=== PATIENT | male | born 1995 | race Caucasian/White ===

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

== ENCOUNTER → 2017-01-06 | Outpatient (CLI) | payer OTHER ==
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
== END | disposition home or self-care (01) ==
LOC: SLEEP 15:03
PROVIDERS: ATTEND Internal Medicine Critical Care Medicine
DX: G47.10 Hypersomnia, unspecified (principal); J35.1 Hypertrophy of tonsils; M26.29 Other anomalies of dental arch relationship
CPT/HCPCS: 99211

== ENCOUNTER → 2020-02-14 | Outpatient (CLI) | payer OTHER ==
--- NOTE | 2020-02-14 18:00 | ECHOF ---
Referral Reason:R07.9,R06.02 MEASUREMENTS -------- HEIGHT: 172.7 cm WEIGHT: 83.9 kg BP: IVSd: 0.9 cm (0.6 - 1.1) LVIDd: 4.7 cm (3.9 - 5.3) LVPWd: 1.0 cm (0.6 - 1.1) IVSs: 1.7 cm LVIDs: 2.2 cm LVPWs: 1.8 cm RVIDd: 2.1 cm (< 3.3) LAESV Index (A-L): 14.23 ml/m Ao Diam: 2.6 cm (2.0 - 3.7) LA Diam: 3.1 cm (2.7 - 3.8) AV Cusp: 2.0 cm (1.5 - 2.6) EPSS: 0.5 cm RAP: 5.00 mmHg RVSP: 19.60 mmHg MV EF SLOPE: 148.48 mm/s (70 - 150) MV EXCURSION: 11.45 mm (> 18.000) FINDINGS -------- Sinus rhythm. This was a technically good study. The left ventricular size is normal. Left ventricular wall thickness is normal. Overall left vent ricular systolic function is normal with, an EF between 55 - 60 %. The diastolic filling pattern is normal for the age of the patient {E/E'}. The right ventricle is normal in size. The left atrial size is normal. The right atrial size is normal. Interatrial and interventricular septum intact. The aortic valve is trileaflet and appears structurally normal. The mitral valve is normal. There is trace mitral regurgitation. The tricuspid valve appears structurally normal. Trace tricuspid regurgitation present. Right josh tricular systolic pressure is normal at < 35 mmHg. There is no pulmonic regurgitation present. The aortic root size is normal. Normal inferior vena cava with normal inspiratory collapse consistent with estimated right atrial pre ssure of 5 mmHg. There is no pericardial effusion. CONCLUSIONS -------- 1. Sinus rhythm. 2. This was a technically good study. 3. The left ventricular size is normal. 4. Left ventricular wall thickness is normal. 5. Overall left ventricular systolic function is normal with, an EF between 55 - 60 %. 6. The diastolic filling pattern is normal for the age of the patient {E/E'} 7. The right ventricle is normal in size. 8. The left atrial size is normal. 9. The right atrial size is normal. 10. Interatrial and interventricular septum intact. 11. The aortic valve is trileaflet and appears structurally normal. 12. The mitral valve is normal. 13. There is trace mitral regurgitation. 14. The tricuspid valve appears structurally normal. 15. Trace tricuspid regurgitation present. 16. Right ventricular systolic pressure is normal at < 35 mmHg. 17. There is no pulmonic regurgitation present. 18. The aortic root size is normal. 19. Normal inferior vena cava with normal inspiratory collapse consistent with estimated right atrial pressure of 5 mmHg. 20. There is no pericardial effusion. TALK SHOW HOST: Janis Fontenot RDCS
== END | disposition home or self-care (01) ==
LOC: RADECHMAIN 12:53
PROVIDERS: ATTEND Internal Medicine
DX: R07.9 Chest pain, unspecified (principal)
CPT/HCPCS: 93306

== ENCOUNTER → 2020-04-16 | Outpatient (CLI) | payer OTHER ==
--- NOTE | 2020-04-16 08:06 | US ---
EXAMINATION TYPE: US gallbladder DATE OF EXAM: 04/16/2020 COMPARISON: US abdomen limited 2017 CLINICAL HISTORY: R10.11 RUQ ABD PAIN. EXAM MEASUREMENTS: Liver Length: 13.6 cm Gallbladder Wall: 0.2 cm CBD: 0.3 cm Right Kidney: 9.2 x 4.0 x 5.5 cm Pancreas: visualized portions wnl Liver: wnl Gallbladder: No stones seen Evidence for sonographic Marinelli's sign: Yes CBD: wnl Right Kidney: No hydronephrosis or masses seen Visualized pancreas and liver unremarkable. Gallbladder seen without shadowing mobile gallstones. Perez ited images of right kidney show no gross hydronephrosis. IMPRESSION: No shadowing mobile gallstones or ultrasound evidence for acute cholecystitis. No signifi cant change from prior.
== END ==
LOC: RADUSWWP 07:44
PROVIDERS: ATTEND Internal Medicine
DX: R10.11 Right upper quadrant pain (principal)
CPT/HCPCS: 76705

== ENCOUNTER → 2020-04-20 | Outpatient (CLI) | payer OTHER ==
--- NOTE | 2020-04-20 18:36 | NM ---
Nuclear medicine hepatobiliary scan. HISTORY: Pain. DOSAGE: The patient received 8 ounces of ensure plus and 4.1 mCi of Technetium 99m Choletec. FINDINGS: There is normal hepatic extraction. The gallbladder is seen by 20 minutes. There is bilia ry to bowel clearance by 30 minutes. Ejection fraction is 56%. IMPRESSION: 1. No evidence of cholecystitis. Normal ejection fraction. 2. Reduced uptake involving the left lobe of the liver is nonspecific. Previous ultrasound demonstrat ed no definite abnormality in the region. Could be artifactual correlate clinically.
== END | disposition home or self-care (01) ==
LOC: RADNMMAIN 15:28
PROVIDERS: ATTEND Internal Medicine
DX: R93.2 Abnormal findings on diagnostic imaging of liver and biliary tract (principal)
CPT/HCPCS: 78226; A9537

== ENCOUNTER 2021-01-31 10:13 | Emergency (ER) | payer OTHER ==
[2021-01-31] MEDS ORDERED: SODIUM CHLORIDE 0.9% 1,000 ML IV STA ×2 (10:40→10:44)
[2021-01-31] MEDS ORDERED: ONDANSETRON 4 MG/2 ML VIAL IVP STA (10:40)
[2021-01-31] MEDS ORDERED: FAMOTIDINE 20 MG/2 ML VIAL IV STA (10:41)
[2021-01-31 11:27] LABS: Appearance,Urine Clear (Clear); Basophils % (A) 0 %; Bilirubin,Urine Negative (Negative); Blood,Urine Negative (Negative); Color,Urine Yellow; Eosinophils # (A) 0.2 k/uL (0-0.7); Eosinophils % (A) 2 %; Glucose,Urine (UA) Negative (Negative); HCT 47.5 % (39.0-53.0); HGB 15.6 gm/dL (13.0-17.5); Ketones,Urine 4+ (Negative); Leukocyte Esterase,Urine Negative (Negative); Lymphocytes # (A) 0.3 k/uL (1.0-4.8); Lymphocytes % (A) 3 %; MCH 28.1 pg (25.0-35.0); MCHC 32.8 g/dL (31.0-37.0); MCV 85.6 fL (80.0-100.0); Mean Platelet Volume 6.7; Monocytes # (A) 0.4 k/uL (0-1.0); Monocytes % (A) 3 %; Neutrophils # (A) 9.4 k/uL (1.3-7.7); Neutrophils % (A) 90 %; Nitrite,Urine Negative (Negative); Platelet Count 311 k/uL (150-450); Protein,Urine Trace (Negative); RBC 5.54 m/uL (4.30-5.90); RDW 12.8 % (11.5-15.5); Specific Gravity,Urine 1.036 (1.001-1.035); Urobilinogen,Urine <2.0 mg/dL (<2.0); WBC 10.4 k/uL (3.8-10.6)
--- NOTE | 2021-01-31 11:35 | ED ---
Nausea/Vomiting/Diarrhea HPI - General Chief complaint: Nausea/Vomiting/Diarrhea Stated complaint: Sun poison Time Seen by Provider: 01/31/21 10:39 Source: patient Mode of arrival: ambulatory Limitations: no limitations - History of Present Illness Initial comments: 25-year-old male presents to the emergency department with a chief complaint of nausea vomiting diarrhea. Patient reports over the last few days she has been working extensively outside in the sun. He states he believes he has developed "sun poisoning". States is a filling weaker but last night after eating [employer], he developed nausea with multiple episodes of nonbilious and nonbloody vomiting. Also reports nonbloody diarrhea. Reports upper abdominal pain especially after vomiting episodes. Denies any chest pain shortness of breath. Denies hematuria, hematochezia or melena. Denies any fevers or chills. - Related Data Home Medications Medication Instructions Recorded Confirmed Ibuprofen [Advil] 400 mg PO Q8HR PRN 06/11/16 06/11/16 Previous Rx's Medication Instructions Recorded Dicyclomine [Bentyl] 20 mg PO TID #15 tablet 10/17/16 Allergies Allergy/AdvReac Type Severity Reaction Status Date / Time No Known Allergies Allergy Verified 01/31/21 10:20 Review of Systems ROS Statement: Those systems with pertinent positive or pertinent negative responses have been documented in the HPI. ROS Other: All systems not noted in ROS Statement are negative. Past Medical History Past Medical History: No Reported History Additional Past Medical History / Comment(s): VOMITING OF BLOOD X4 IN PAST MO. History of Any Multi-Drug Resistant Organisms: None Reported Past Surgical History: No Surgical Hx Reported Past Anesthesia/Blood Transfusion Reactions: No Reported Reaction Past Psychological History: No Psychological Hx Reported Smoking Status: Never smoker Past Alcohol Use History: Occasional Past Drug Use History: Marijuana - Past Family History Mother Family Medical History: No Reported History General Exam Limitations: no limitations General appearance: alert, in no apparent distress Head exam: Present: atraumatic, normocephalic, normal inspection Eye exam: Present: normal appearance, PERRL, EOMI Pupils: Present: normal accommodation ENT exam: Present: normal exam, normal oropharynx, mucous membranes moist, TM's normal bilaterally, normal external ear exam Neck exam: Present: normal inspection, full ROM. Absent: tenderness, lymphadenopathy Respiratory exam: Present: normal lung sounds bilaterally. Absent: respiratory distress, wheezes, rales, rhonchi, stridor, chest wall tenderness, accessory muscle use Cardiovascular Exam: Present: regular rate, normal rhythm, normal heart sounds. Absent: systolic murmur GI/Abdominal exam: Present: soft, tenderness (Mild upper abdominal tenderness). Absent: distended, guarding, rebound, rigid Extremities exam: Present: normal inspection, full ROM, normal capillary refill. Absent: tenderness, pedal edema, joint swelling Back exam: Present: normal inspection, full ROM. Absent: tenderness, CVA tenderness (R), CVA tenderness (L), muscle spasm, paraspinal tenderness, vertebral tenderness Neurological exam: Present: alert, oriented X3 Psychiatric exam: Present: normal affect, normal mood Skin exam: Present: warm, dry, intact, normal color Course Vital Signs 01/31/21 10:15 Temperature 97.2 F L Pulse Rate 94 Respiratory 18 Rate Blood Pressure 120/82 O2 Sat by Pulse 100 Oximetry Medical Decision Making - Medical Decision Making 25-year-old male presents to emergency department a chief complaint of nausea vomiting diarrhea. On physical examination, mild upper abdominal tenderness. CBC and a markable. CMP reveals elevated BUN of 26 and plus for ketones in the urine. Patient is dehydrated from the fluid loss. Patient given Pepcid, Zofran and 2 L of IV fluids. Patient was reevaluated and reports feeling much better. Patient will be discharged and advised to follow with PCP. Advised to drink plenty of fluids. We'll discharge with a prescription for Zofran. Return parameters discussed. Case discussed with - Lab Data Result diagrams: 01/31/21 11:01 01/31/21 11:01 Lab Results 01/31/21 01/31/21 01/31/21 Range/Units 11:01 11:01 11: WBC 10.4 (3.8-10.6) k/uL RBC 5.54 (4.30-5.90) m/uL Hgb 15.6 (13.0-17.5) gm/dL Hct 47.5 (39.0-53.0) % MCV 85.6 (80.0-100.0) fL MCH 28.1 (25.0-35.0) pg MCHC 32.8 (31.0-37.0) g/dL RDW 12.8 (11.5-15.5) % Plt Count 311 (150-450) k/uL MPV 6.7 Neutrophils % 90 % Lymphocytes % 3 % Monocytes % 3 % Eosinophils % 2 % Basophils % 0 % Neutrophils # 9.4 H (1.3-7.7) k/uL Lymphocytes # 0.3 L (1.0-4.8) k/uL Monocytes # 0.4 (0-1.0) k/uL Eosinophils # 0.2 (0-0.7) k/uL Basophils # 0.0 (0-0.2) k/uL Sodium 142 (137-145) mmol/L Potassium 4.5 (3.5-5.1) mmol/L Chloride 104 (98-107) mmol/L Carbon Dioxide 29 (22-30) mmol/L Anion Gap 9 mmol/L BUN 26 H (9-20) mg/dL Creatinine 1.15 (0.66-1.25) mg/dL Est GFR (CKD-EPI)AfAm >90 (>60 ml/min/1.73 sqM) Est GFR (CKD-EPI)NonAf 90 (>60 ml/min/1.73 sqM) Glucose 106 H (74-99) mg/dL Calcium 9.7 (8.4-10.2) mg/dL Total Bilirubin 1.1 (0.2-1.3) mg/dL AST 43 (17-59) U/L ALT 25 (4-49) U/L Alkaline Phosphatase 76 (38-126) U/L Total Protein 7.7 (6.3-8.2) g/dL Albumin 5.0 (3.5-5.0) g/dL Lipase 49 (23-300) U/L Urine Color Yellow Urine Appearance Clear (Clear) Urine pH 6.0 (5.0-8.0) Ur Specific [place] 1.036 H (1.001-1.035) Urine Protein Trace H (Negative) Urine Glucose (UA) Negative (Negative) Urine Ketones 4+ H (Negative) Urine Blood Negative (Negative) Urine Nitrite Negative (Negative) Urine Bilirubin Negative (Negative) Urine Urobilinogen <2.0 (<2.0) mg/dL Ur Leukocyte Esterase Negative (Negative) Disposition Clinical Impression: Food poisoning, Dehydration, Gastroenteritis Disposition: HOME SELF-CARE Condition: Stable Instructions (If sedation given, give patient instructions): Gastroenteritis (ED), Dehydration (ED) Additional Instructions: Please return to the Emergency Department if symptoms worsen or any other concerns. Is patient prescribed a controlled substance at d/c from ED?: No Referrals: Ra Cisse MD [Primary Care Provider] - 1-2 days Time of Disposition: 12:13
[2021-01-31 11:53] LABS: ALT 25 U/L (4-49); AST 43 U/L (17-59); African American GFR (CKD) >90 (>60 ml/min/1.73 sqM); Alkaline Phosphatase 76 U/L (38-126); Anion Gap 9 mmol/L; Blood Urea Nitrogen 26 mg/dL (9-20); Calcium 9.7 mg/dL (8.4-10.2); Carbon Dioxide 29 mmol/L (22-30); Chloride 104 mmol/L (98-107); Glucose 106 mg/dL (74-99); Lipase 49 U/L (23-300); Non-African American GFR(CKD) 90 (>60 ml/min/1.73 sqM); Potassium 4.5 mmol/L (3.5-5.1); Sodium 142 mmol/L (137-145); Total Bilirubin 1.1 mg/dL (0.2-1.3); Total Protein 7.7 g/dL (6.3-8.2)
[2021-01-31 12:41] VITALS: BP 120/74; PULSE 64; RESP 17; TEMP 98.6
== END 2021-01-31 12:41 | disposition home or self-care (01) ==
LOC: EC 10:13
DX: A05.9 Bacterial foodborne intoxication, unspecified (principal); E86.0 Dehydration; Z79.1 Long term (current) use of non-steroidal anti-inflammatories (NSAID)
CPT/HCPCS: 36415; 80053; 83690; 85025; 81003; 99284; 96374; 96375; 96361; J2405

== ENCOUNTER → 2022-07-18 | Outpatient (CLI) | payer OTHER ==
--- NOTE | 2022-07-18 09:39 | US ---
EXAMINATION TYPE: US thyroid st tissue head/neck DATE OF EXAM: 07/18/2022 COMPARISON: NONE CLINICAL HISTORY: R22.0 SWELLING/MASS. GLAND SIZE: Right Lobe: 7.4 x 1.1 x 2.0 cm, enlarged Overall Parenchyma: homogenous Left Lobe: 5.4 x 1.1 x 2.0 cm Overall Parenchyma: homogeneous Isthmus Thickness: 0.2 cm NODULES RIGHT: # of nodules measured on right: 0 LEFT: # of nodules measured on left: 0 ISTHMUS: # of nodules measured in the isthmus: 0 Bilateral neck scanned, right neck lymph node seen measuring 3.7 x 1.0 x 1.9 cm, left neck lymph node seen measuring 2.8 x 0.9 x 1.3cm. IMPRESSION: 1. No organizing mass or fluid collection. Consider CT of the neck with IV contrast for further eval uation for mass/swelling. 2. No evidence of thyroid nodule. 3. Nonspecific bilateral lymph nodes.
[2022-07-18 14:44] LABS: Basophils # (A) 0.05 X 10*3/uL (0.00-0.10); Basophils % (A) 0.7 %; Eosinophils # (A) 0.54 X 10*3/uL (0.04-0.35); Eosinophils % (A) 7.5 %; HCT 45.1 % (39.6-50.0); HGB 14.8 g/dL (13.0-17.0); Immature Grans, Automated 0.3 %; Lymphocytes # (A) 2.39 X 10*3/uL (0.90-5.00); Lymphocytes % (A) 33.3 %; MCH 27.9 pg (27.0-32.0); MCHC 32.8 g/dL (32.0-37.0); MCV 84.9 fL (80.0-97.0); Mean Platelet Volume 10.1 fL (9.5-12.2); Monocytes # (A) 0.53 X 10*3/uL (0.20-1.00); Monocytes % (A) 7.4 %; NRBC Per 100 WBC 0 /100 WBCS (0.0-0.0); Neutrophils # (A) 3.65 X 10*3/uL (1.80-7.70); Neutrophils % (A) 50.8 %; Platelet Count 294 X 10*3/uL (140-440); RBC 5.31 X 10*6/uL (4.40-5.60); RDW 12.2 % (11.5-14.5); WBC 7.18 X 10*3/uL (4.50-10.00)
[2022-07-18 15:58] LABS: African American GFR (CKD) 108.3 (60.0-200.0); Albumin 4.6 g/dL (3.8-4.9); Albumin/Globulin Ratio 1.92 (1.60-3.17); Anion Gap 10.1 mmol/L (10.00-18.00); BUN/Creat Ratio 19.09 Ratio (12.00-20.00); Calcium 9.6 mg/dL (8.7-10.3); Carbon Dioxide 26.9 mmol/L (20.0-27.5); Globulin 2.4 g/dL (1.6-3.3); Non-African American GFR(CKD) 93.5 (60.0-200.0); Potassium 4.6 mmol/L (3.5-5.5); Total Bilirubin 0.3 mg/dL (0.30-1.20)
== END | disposition home or self-care (01) ==
LOC: RADUSWWP 08:04
PROVIDERS: ATTEND Internal Medicine
DX: R22.1 Localized swelling, mass and lump, neck (principal)
CPT/HCPCS: 76536; 80053; 84403; 84443; 85025

== ENCOUNTER 2024-10-16 08:44 | Emergency (ER) | payer OTHER ==
[2024-10-16] MEDS: SODIUM CHLORIDE 0.9% 1,000 ML IV STA (09:35)
[2024-10-16 09:42] LABS: Basophils % (A) 1 %; Eosinophils # (A) 0.7 k/uL (0-0.7); Eosinophils % (A) 10 %; HCT 46.5 % (39.0-53.0); HGB 14.8 gm/dL (13.0-17.5); Lymphocytes # (A) 1.9 k/uL (1.0-4.8); Lymphocytes % (A) 29 %; MCH 27.4 pg (25.0-35.0); MCHC 31.8 g/dL (31.0-37.0); MCV 86.3 fL (80.0-100.0); Mean Platelet Volume 6.9; Monocytes # (A) 0.3 k/uL (0-1.0); Monocytes % (A) 4 %; Neutrophils # (A) 3.6 k/uL (1.3-7.7); Neutrophils % (A) 54 %; Platelet Count 258 k/uL (150-450); RBC 5.39 m/uL (4.30-5.90); RDW 12.3 % (11.5-15.5); WBC 6.6 k/uL (3.8-10.6)
[2024-10-16] MEDS: DEXAMETHASONE SOD PHOSPHATE 10 MG/ML 1 ML VIAL IVP STA (09:46)
[2024-10-16] MEDS: diphenhydrAMINE 50 MG/ML 1 ML VIAL IVP STA (09:46)
[2024-10-16] MEDS: PROCHLORPERAZINE INJ 10 MG/2 ML VIAL IVP STA (09:47)
[2024-10-16] MEDS: KETOROLAC 15 MG/ML 1 ML VIAL IVP STA (09:47)
--- NOTE | 2024-10-16 09:54 | ED ---
Headache HPI - General Chief Complaint: Headache Stated Complaint: Headache Time Seen by Provider: 10/16/24 09:04 Source: patient, RN notes reviewed Mode of arrival: ambulatory Limitations: no limitations - History of Present Illness Initial Comments: This is a 28-year-old male who presents to the emergency department for a headache. States that he first noticed this 3 to 4 days ago. It seems to be occurring somewhat intermittently, however last night it became severe and he was in tears. He has tried tiin-efv-texmnsf medication without any relief. Pain is worse on the left side of his head. He reports pain in his eye as well as visual changes. Additionally, he reports sensitivity to light and sound as well as nausea. Denies any substantial history of headaches. MD Complaint: headache - Related Data Home Medications Medication Instructions Recorded Confirmed Ibuprofen [Advil] 400 mg PO Q8HR PRN 06/11/16 06/11/16 Previous Rx's Medication Instructions Recorded Dicyclomine [Bentyl] 20 mg PO TID #15 tablet 10/17/16 Ondansetron Odt [Zofran Odt] 4 mg PO Q8HR PRN #10 tab 01/31/21 Amoxic-Pot Clav 875-125Mg 1 tab PO Q12HR 7 Days #14 tab 10/16/24 [Augmentin 875-125] Ketorolac [Toradol] 10 mg PO Q6HR PRN #15 tab 10/16/24 Ondansetron Odt [Zofran Odt] 4 mg PO Q8HR PRN #15 tab 10/16/24 Allergies Allergy/AdvReac Type Severity Reaction Status Date / Time No Known Allergies Allergy Verified 01/31/21 10:20 Review of Systems ROS Statement: Those systems with pertinent positive or pertinent negative responses have been documented in the HPI. ROS Other: All systems not noted in ROS Statement are negative. Past Medical History Past Medical History: No Reported History Additional Past Medical History / Comment(s): VOMITING OF BLOOD X4 IN PAST MO. History of Any Multi-Drug Resistant Organisms: None Reported Past Surgical History: No Surgical Hx Reported Past Anesthesia/Blood Transfusion Reactions: No Reported Reaction Past Psychological History: No Psychological Hx Reported Smoking Status: Never smoker Past Alcohol Use History: Occasional Past Drug Use History: Marijuana - Past Family History Mother Family Medical History: No Reported History General Exam Limitations: no limitations General appearance: alert, in no apparent distress Head exam: Present: atraumatic, normocephalic, normal inspection Eye exam: Present: normal appearance, PERRL, EOMI. Absent: scleral icterus, conjunctival injection, periorbital swelling Respiratory exam: Present: normal lung sounds bilaterally. Absent: respiratory distress, wheezes, rales, rhonchi, stridor Cardiovascular Exam: Present: regular rate, normal rhythm, normal heart sounds. Absent: systolic murmur, diastolic murmur, rubs, gallop, clicks Neurological exam: Present: alert, oriented X3, CN II-XII intact Psychiatric exam: Present: normal affect, normal mood Skin exam: Present: warm, dry, intact, normal color. Absent: rash Course Vital Signs 10/16/24 10/16/24 10/16/24 09:00 10:43 10:57 Temperature 98.3 F 97.9 F 97.9 F Pulse Rate 59 L 61 61 Respiratory 16 18 18 Rate Blood Pressure 143/84 114/65 114/65 O2 Sat by Pulse 98 98 98 Oximetry Medical Decision Making - Medical Decision Making This is a 28 year old male who presents to the emergency department for a headache. Was pt. sent in by a medical professional or institution? @ -No Did you speak to anyone other than the patient for history? @ -No Did you review nursing and triage notes? @ -Yes, and I agree, it is accurate with regards to the patient's symptoms. Were old charts reviewed? @ -No Differential Diagnosis? @ -Differential Headache: Migraine, tension, cluster, carbon monoxide, central venous thrombosis, pension karma temporal arteritis, acute closure glaucoma, intercranial hemorrhage, mastoiditis, sinusitis, head injury, this is not meant to be an all-inclusive list. EKG interpreted by me (3pts min.)? @ -Not obtained X-rays interpreted by me (1pt min.)? @ -Not obtained CT interpreted by me (1pt min.)? @ -CT scan of the brain obtained. My interpretation identifies no evidence of an acute intracranial hemorrhage. U/S interpreted by me (1pt. min.)? @ -Not obtained What testing was considered but not performed? (CT, X-rays, U/S, labs)? Why? @ -None What meds were considered but not given? Why? @ -None Did you discuss the management of the patient with other professionals? @ -No Did you reconcile home meds? @ -No Was smoking cessation discussed for >3mins.? @ -No Was critical care preformed (if so, how long)? @ -No Were there social determinants of health that impacted care today? How? (Homelessness, low income, unemployed, alcoholism, drug addiction, transportation, low edu. Level, literacy, decrease access to med. care, penitentiary, rehab)? @ -No Was there de-escalation of care discussed even if they declined? (Discuss DNR or withdrawal of care, Hospice)? @ -No What co-morbidities impacted this encounter? (DM, HTN, Smoking, COPD, CAD, Cancer, CVA, Hep., AIDS, mental health diagnosis, sleep apnea, morbid obesity)? @ -None Was patient admitted / discharged? @ -Discharged. We did proceed with more of a workup due to patient's visual changes and lack of headache history. Lab work was unremarkable. COVID, influenza, and RSV testing negative. CT scan of the brain revealed signs of sinusitis and was otherwise unremarkable. He was treated with a migraine cocktail consisting of IV fluids, Toradol, Decadron, Compazine, and Benadryl. He essentially had resolution of the pain afterwards. Prescription for Augmentin provided for the sinus infection along with Toradol and Zofran for further management of the headache and nausea. Patient discharged home in stable condition. Case discussed with ED attending Dr. Connell. Return precautions reviewed in depth, the patient is instructed to return to the emergency department with any new, worsening, or concerning symptoms. Patient verbalized understanding. Undiagnosed new problem with uncertain prognosis? @ -None Drug Therapy requiring intensive monitoring for toxicity (Heparin, Nitro, Insulin, Cardizem)? @ -None Were any procedures done? @ -None Diagnosis/symptom? @ -Sinus infection, headache, nausea Acute, or Chronic, or Acute on Chronic? @ -Acute Uncomplicated (without systemic symptoms) or Complicated (systemic symptoms)? @ -Uncomplicated Side effects of treatment? @ -None Exacerbation, Progression, or Severe Exacerbation] @ -Not applicable Poses a threat to life or bodily function? @ -No - Lab Data Result diagrams: 10/16/24 09:32 10/16/24 09:32 Lab Results 10/16/24 10/16/24 10/16/24 Range/Units 09:32 09:32 09:55 WBC 6.6 (3.8-10.6) k/uL RBC 5.39 (4.30-5.90) m/uL Hgb 14.8 (13.0-17.5) gm/dL Hct 46.5 (39.0-53.0) % MCV 86.3 (80.0-100.0) fL MCH 27.4 (25.0-35.0) pg MCHC 31.8 (31.0-37.0) g/dL RDW 12.3 (11.5-15.5) % Plt Count 258 (150-450) k/uL MPV 6.9 Neutrophils % 54 % Lymphocytes % 29 % Monocytes % 4 % Eosinophils % 10 % Basophils % 1 % Neutrophils # 3.6 (1.3-7.7) k/uL Lymphocytes # 1.9 (1.0-4.8) k/uL Monocytes # 0.3 (0-1.0) k/uL Eosinophils # 0.7 (0-0.7) k/uL Basophils # 0.0 (0-0.2) k/uL ESR 12 (0-15) mm/Hr Sodium 137 (137-145) mmol/L Potassium 5.0 (3.5-5.1) mmol/L Chloride 103 (98-107) mmol/L Carbon Dioxide 29 (22-30) mmol/L Anion Gap 5 mmol/L BUN 17 (9-20) mg/dL Creatinine 1.05 (0.66-1.25) mg/dL Est GFR (CKD-EPI)AfAm >90 (>60 ml/min/1.73 sqM) Est GFR (CKD-EPI)NonAf >90 (>60 ml/min/1.73 sqM) Glucose 97 (74-99) mg/dL Calcium 9.6 (8.4-10.2) mg/dL Magnesium 2.1 (1.6-2.3) mg/dL Total Bilirubin 0.9 (0.2-1.3) mg/dL AST 30 (17-59) U/L ALT 21 (4-49) U/L Alkaline Phosphatase 70 (38-126) U/L C-Reactive Protein <0.5 (<1.0) mg/dL Total Protein 7.5 (6.3-8.2) g/dL Albumin 4.5 (3.5-5.0) g/dL Influenza Type A (PCR) Not Detected (Not Detectd) Influenza Type B (PCR) Not Detected (Not Detectd) RSV (PCR) Not Detected (Not Detectd) SARS-CoV-2 (PCR) Not Detected (Not Detectd) - Radiology Data Radiology results: report reviewed, image reviewed Disposition Clinical Impression: Headache, Paranasal sinus disease, Nausea Disposition: HOME SELF-CARE Instructions (If sedation given, give patient instructions): Acute Headache (ED) Additional Instructions: Return to the emergency department with any new, worsening, or concerning symptoms. Take the antibiotic as prescribed for 7 days. Take the Toradol with Tylenol as needed for pain relief. If you choose to take the Toradol, do not take any other anti-inflammatories such as ibuprofen, take one or the other. Take the Zofran up to every 8 hours as needed for nausea and vomiting. Prescriptions: Amoxic-Pot Clav 875-125Mg [Augmentin 875-125] 1 tab PO Q12HR 7 Days #14 tab Ketorolac [Toradol] 10 mg PO Q6HR PRN #15 tab PRN Reason: Pain Ondansetron Odt [Zofran Odt] 4 mg PO Q8HR PRN #15 tab PRN Reason: Nausea And Vomiting Is patient prescribed a controlled substance at d/c from ED?: No Referrals: None,Stated [Primary Care Provider] - 1-2 days Time of Disposition: 10:50
--- NOTE | 2024-10-16 10:00 | CT ---
EXAMINATION TYPE: CT brain wo con CT DLP: 1168.4 mGycm, Automated exposure control for dose reduction was used. DATE OF EXAM: 10/16/2024 9:54 AM COMPARISON: CT brain 06/08/2015 CLINICAL INDICATION:Male, 28 years old with history of Headache, headache x few days TECHNIQUE: Brain: Multiple axial CT images of the brain were obtained without IV contrast. . Coronal and sagitta l reformats reviewed. FINDINGS: Brain: Extra-axial spaces: No abnormal extra-axial fluid collections. Ventricular system: Within normal limits Cerebral parenchyma: No acute intraparenchymal hemorrhage or mass effect. The wallace-white junction is well differentiated. Cerebellum: Unremarkable. Mass effect: No evidence of midline shift. Intracranial vasculature: unremarkable Soft tissues: Normal. Calvarium/osseous structures: No depressed skull fracture. Paranasal sinuses and mastoid air cells: Mastoid air cells are clear. Mild mucosal thickening of the right maxillary sinus with moderate mucosal thickening in the left maxillary sinus. Sphenoid sinuses are clear. Mild to moderate mucosal of the bilateral anterior ethmoid sinuses. Minimal mucosal thicke jay inferior bilateral frontal sinuses. Visualized orbits: Orbital contents are intact. IMPRESSION: 1. No acute intracranial process. 2. Moderate paranasal sinus disease. [facility], , 10/16/2024 9:57 AM
[2024-10-16 10:22] LABS: ALT 21 U/L (4-49); AST 30 U/L (17-59); African American GFR (CKD) >90 (>60 ml/min/1.73 sqM); Albumin 4.5 g/dL (3.5-5.0); Alkaline Phosphatase 70 U/L (38-126); Anion Gap 5 mmol/L; Blood Urea Nitrogen 17 mg/dL (9-20); C Reactive Protein <0.5 mg/dL (<1.0); Calcium 9.6 mg/dL (8.4-10.2); Carbon Dioxide 29 mmol/L (22-30); Chloride 103 mmol/L (98-107); Glucose 97 mg/dL (74-99); Magnesium 2.1 mg/dL (1.6-2.3); Non-African American GFR(CKD) >90 (>60 ml/min/1.73 sqM); Sodium 137 mmol/L (137-145); Total Bilirubin 0.9 mg/dL (0.2-1.3); Total Protein 7.5 g/dL (6.3-8.2)
[2024-10-16 10:37] LABS: Influenza A Not Detected (Not Detectd); Influenza B Not Detected (Not Detectd); RSV Not Detected (Not Detectd)
[2024-10-16 10:46] VITALS: BP 114/65; PULSE 61; RESP 18; TEMP 97.9
[2024-10-16 15:46] LABS: Erythrocyte Sedimentation Rate 12 mm/Hr (0-15)
== END 2024-10-16 10:57 | disposition home or self-care (01) ==
LOC: EC 08:44
DX: J32.9 Chronic sinusitis, unspecified (principal); R11.0 Nausea
CPT/HCPCS: 36415; 80053; 85652; 83735; 85025; 86140; 87636; 70450; 99284; 96374; 96375 ×3; 96361; J1200; J0780; J1100; J1885

== ENCOUNTER → 2025-03-20 | Outpatient (CLI) | payer OTHER ==
--- NOTE | 2025-03-20 08:17 | US ---
EXAMINATION TYPE: US abdomen limited DATE OF EXAM: 03/20/2025 COMPARISON: NONE CLINICAL INDICATION: Male, 29 years old with history of R10.31 RLQ PAIN; 2 palpable areas right flank . Anterior area x 3 months, tender. Posterior area x 1 month. TECHNIQUE: several images taken at areas of concern using grayscale, color doppler and compression u sed FINDINGS: At the anterior palpable area there is a 0.9x0.5x0.8cm hyperechoic avascular area within t he subcutaneous layer. This area is not compressible. Likely lipoma At the posterior palpable area there is a 0.5x1.3x1.0cm hyperechoic avascular area within the subcuta neous layer. This area is not compressible. Likely lipoma IMPRESSION: Hyperechoic lesions identified in the areas of concern these findings are most likely rep resenting lipomas. Consider CT for confirmation with palpable marker placements. [facility], , 03/20/2025 8:15 AM
--- NOTE | 2025-03-20 08:18 | US ---
EXAMINATION TYPE: US extremity nonvasc mass LT DATE OF EXAM: 03/20/2025 COMPARISON: NONE CLINICAL INDICATION: Male, 29 years old with history of R 22.34 lt arm mass; left upper arm mass x 1 year TECHNIQUE: several images taken at area of concern using grayscale, color doppler and compression FINDINGS: At the anterior palpable area there is a 0.9x0.5x0.8cm isoechoic area within the subcutane ous fat layer. This area is compressible. Likely fat lobule vs. lipoma IMPRESSION: Hyperechoic lesion in left arm which appears to represent lobulated fat versus lipoma. Th is can be confirmed with CT imaging with palpable marker placement. [facility], , 03/20/2025 8:16 AM
--- NOTE | 2025-03-20 08:45 | US ---
EXAMINATION TYPE: US extremity nonvasc mass JOSELYN DATE OF EXAM: 03/20/2025 COMPARISON: NONE CLINICAL INDICATION: Male, 29 years old with history of R 22.41 bilat thigh mass; bilateral proximal thigh palpables x 1 year TECHNIQUE: several images taken at areas of concern using grayscale, color doppler and compression FINDINGS: At the right proximal thigh palpable area there is a 0.6x 0.9x 1.2cm avascular hyperechoic area within the subcutaneous fat layer. This area is not compressible. Likely lipoma. At the left proximal thigh palpable area there is a 0.5x0.8x0.8cm avascular hyperechoic area within the subcutaneous fat layer. This area is not compressible. Likely lipoma. IMPRESSION: Hyperechoic lesion in the area of patient's palpable abnormality. Findings favored repres ent lipoma. CT with palpable marker placement requested for confirmation. [facility], , 03/20/2025 8:42 AM
== END | disposition home or self-care (01) ==
LOC: RADUSWWP 07:01
PROVIDERS: ATTEND Family Medicine
DX: R10.31 Right lower quadrant pain (principal); R22.41 Localized swelling, mass and lump, right lower limb; R22.42 Localized swelling, mass and lump, left lower limb; R22.32 Localized swelling, mass and lump, left upper limb
CPT/HCPCS: 76705; 76882